=== PATIENT | female | born 1990 ===

== ENCOUNTER 2019-03-01 10:55 | Emergency (ER) | payer OTHER, MEDICAID, SELFPAY ==
[2019-03-01 11:15] VITALS: BP 105/68; PULSE 86; RESP 13; TEMP 36.1; O2SAT 99
--- NOTE | 2019-03-01 13:25 | ED.ANXIETY ---
HPI - Anxiety General Chief Complaint: Anxiety Stated Complaint: Anxiety Time Seen by Provider: 03/01/19 13:00 Source: patient Mode of arrival: ambulatory Limitations: no limitations History of Present Illness HPI narrative: This is a 28-year-old female comes to the emergency department complaint of anxiety. Patient has had longstanding diarrhea but has been worsening. She states that she had labs in September including checking her thyroid and they were all normal. She states that she has tried hydroxyzine in the past which was not very helpful. She was on citalopram for about a week but lost her prescription. She just moved to the area so she does not primary care. She has been seen by mental health in the past. She denies any suicidal ideation, intent or homicidal ideation. She states it just seems sort of like generalized anxiety nothing in particular seems to make her anxious or trigger she just sort of has attacks intermittently. She is staying in apartment through family housing. She did just recently started a job and is working 10-12 hours daily. She denies any other symptoms at this time. Related Data Previous Rx's Medication Instructions Recorded citalopram 20 mg PO DAILY #30 tab 03/01/19 clonazepam 0.25 mg PO BID PRN #5 tab 03/01/19 trazodone 50 mg PO BEDTIME #30 tab 03/01/19 Review of Systems Psychiatric Reports anxiety, Reports change in appetite, Denies depression, Denies homicidal ideation and Denies suicidal ideation [facility] Medical History (Updated 03/01/19 @ 13:46 by Shruthi Hurley DO) Anxiety (Chronic) Social History Smoking Status: Current every day smoker Social History (Updated 03/01/19 @ 13:42 by Shruthi Hurley DO) Smoking Status: Current every day smoker substance use type: does not use Exam Narrative Exam Narrative: GENERAL: Alert and oriented x three, well-nourished, well-appearing female in mild distress. HEENT: Head normocephalic, atraumatic, EOMI, pupils reactive, face symmetric, moist mucous membranes NECK: Supple, full range of motion, no thyromegaly, no nodules. CARDIOVASCULAR: Regular rate and rhythm without murmurs, rubs or gallops. RESPIRATORY: Breath sounds equal bilaterally, no wheezes rales or rhonchi. ABDOMEN: Soft, nontender. Normoactive bowel sounds all 4 quadrants. No guarding or rebound, rigidity, no mass : No CVA tenderness EXTREMITIES: Normal range of motion, no clubbing or edema. Neurovascularly intact NEUROLOGICAL: Cranial nerves II through XII grossly intact. Moving all extremities SKIN: Warm, dry, no petechiae, no rashes or lesions. PSYCH: Anxiety, denies depression. No suicidal homicidal ideation. Initial Vital Signs Initial Vital Signs: Vital Signs Temperature 97 F L 03/01/19 11:15 Pulse Rate 86 03/01/19 11:15 Respiratory Rate 13 03/01/19 11:15 Blood Pressure 105/68 03/01/19 11:15 Pulse Oximetry 99 03/01/19 11:15 Course Orders Ordered: ED Orders 03/01/19 13:04 EKG-12 Lead Stat 03/01/19 13:15 Urine Drug Screen, Rapid Stat Vital Signs - 8 hr 03/01/19 11:15 Temperature 97 F L Pulse Rate 86 Respiratory Rate 13 Blood Pressure 105/68 Pulse Oximetry 99 MDM - Anxiety Lab Data Lab Results 03/01/19 Range/Units 13:15 Urine Opiates Screen Negative (Negative) Ur Oxycodone Screen Negative (Negative) Urine Methadone Screen Negative (Negative) Ur Barbiturates Screen Negative (Negative) U Tricyclic Antidepress Negative (Negative) Ur Phencyclidine Scrn Negative (Negative) Ur Amphetamines Screen Negative (Negative) U Methamphetamines Scrn Negative (Negative) Ur MDMA Scrn (Ecstasy) Negative (Negative) U Benzodiazepines Scrn Negative (Negative) Urine Cocaine Screen Negative (Negative) U Marijuana (THC) Screen Negative (Negative) Point of Care Testing Test Results Negative Urine Dip Bedside Urine Glucose Negative Bedside Urine Bilirubin - Negative Bedside Urine Ketone - Negative Urine Specific [place] 1.030 Bedside Urine Occult Blood - Negative Bedside Urine pH 6.0 Bedside Urine Protein - Negative Bedside Urine Urobilinogen - Negative Bedside Urine Nitrite - Negative Bedside Urine Leukocytes - Negative Esterase ECG Data Attestation: I personally reviewed and interpreted this ECG as follows: Interpretation: Sinus rhythm rate of 70 P are 137 QRS 83 QTC at 378, no ST elevation or depression [facility] Narrative Medical decision making narrative: Patient was taking trazodone as well as citalopram together but for only a short period of time. She did not notice rapid increase in her symptoms while on these medications or worsening but she was not having any improvement. She is slowly worsening over time. Discussed with patient will restart on citalopram as well as the trazodone and give her a longer prescription to lower to set up follow-up. I will also give her a short-term script for benzodiazepine. Patient was given referral to Dr. Harris but also [facility] and discuss she can call her insurance number to see who is available for primary care as an option as well. Discharge Plan Departure Patient Disposition: Home Clinical Impression: Anxiety Discharge Date/Time: 03/01/19 14:15 Interventions: ED Discharge Assessment Last Done: 03/01/19 14:14 Instructions: Anxiety and Panic Attacks (Alternative Therapy) Activity Restrictions/Additional Instructions: Follow-up with primary care or Dr. Harris. You can call the [facility] number at [phone] and ask for the human resource statistician to help me find a primary care physician. Take trazodone as prescribed. Take citalopram as prescribed, you may increase from 20 to 40mg after one week. You may take 1/2 tablet of clonazepam every 8 hours as needed. These medications in combination and alone can make you sleepy so did not drive, perform has activities or make any major decisions while taking them. Return to the emergency department if you are having worsening symptoms, if you feel unsafe,if you have thoughts of harming herself, new chest pain, shortness of breath, passing out, persistent vomiting or other new or concerning symptoms. If you're feeling suicidal or having suicidal thoughts, contact the suicide hotline, this is also the resource number for [facility]. You can call to make an appointment or have follow-up with their CPIT team and for resources. . Prescriptions: New trazodone 50 mg tablet 50 mg PO BEDTIME Qty: 30 RF: 0 citalopram 20 mg tablet 20 mg PO DAILY Qty: 30 RF: 0 clonazepam 0.5 mg tablet 0.25 mg PO BID PRN (Reason: anxiety) Qty: 5 RF: 0 Referrals: Brian Harris MD [Physician] -
[2019-03-01 13:32] LABS: Urine Amphetamines Negative (Negative); Urine Barbiturates Negative (Negative); Urine Benzodiazepines Negative (Negative); Urine Cocaine Negative (Negative); Urine MDMA Negative (Negative); Urine Methadone Negative (Negative); Urine Methamphetamines Negative (Negative); Urine Morphine/Opi cutoff 2000 Negative (Negative); Urine Oxycodone Negative (Negative); Urine Phencyclidine Negative (Negative); Urine Tetrahydrocannabinol Negative (Negative); Urine Tricyclic Antidepressant Negative (Negative)
--- NOTE | 2019-03-01 13:46 | ED_ITS ---
HPI - Anxiety General Chief Complaint: Anxiety Stated Complaint: Anxiety Time Seen by Provider: 03/01/19 13:00 Source: patient Mode of arrival: ambulatory Limitations: no limitations History of Present Illness HPI narrative: This is a 28-year-old female comes to the emergency department complaint of anxiety. Patient has had longstanding diarrhea but has been worsening. She states that she had labs in September including checking her thyroid and they were all normal. She states that she has tried hydroxyzine in the past which was not very helpful. She was on citalopram for about a week but lost her prescription. She just moved to the area so she does not primary care. She has been seen by mental health in the past. She denies any suicidal ideation, intent or homicidal ideation. She states it just seems sort of like generalized anxiety nothing in particular seems to make her anxious or trigger she just sort of has attacks intermittently. She is staying in apartment through family housing. She did just recently started a job and is working 10- 12 hours daily. She denies any other symptoms at this time. Related Data Previous Rx's Medication Instructions Recorded citalopram 20 mg PO DAILY #30 tab 03/01/19 clonazepam 0.25 mg PO BID PRN #5 tab 03/01/19 trazodone 50 mg PO BEDTIME #30 tab 03/01/19 Review of Systems Psychiatric Reports anxiety, Reports change in appetite, Denies depression, Denies homicidal ideation and Denies suicidal ideation [facility] Medical History (Updated 03/01/19 @ 13:46 by Shruthi Hurley DO) Anxiety (Chronic) Social History Smoking Status: Current every day smoker Social History (Updated 03/01/19 @ 13:42 by Shruthi Hurley DO) Smoking Status: Current every day smoker substance use type: does not use Exam Narrative Exam Narrative: GENERAL: Alert and oriented x three, well-nourished, well-suni earing female in mild distress. HEENT: Head normocephalic, atraumatic, EOMI, pupils reactive, face symmetric, moist mucous membranes NECK: Supple, full range of motion, no thyromegaly, no nodules. CARDIOVASCULAR: Regular rate and rhythm without murmurs, rubs or gallops. RESPIRATORY: Breath sounds equal bilaterally, no wheezes rales or rhonchi. ABDOMEN: Soft, nontender. Normoactive bowel sounds all 4 quadrants. No guarding or rebound, rigidity, no mass : No CVA tenderness EXTREMITIES: Normal range of motion, no clubbing or edema. Neurovascularly intact NEUROLOGICAL: Cranial nerves II through XII grossly intact. Moving all extremities SKIN: Warm, dry, no petechiae, no rashes or lesions. PSYCH: Anxiety, denies depression. No suicidal homicidal ideation. Initial Vital Signs Initial Vital Signs: Vital Signs Temperature 97 F L 03/01/19 11:15 Pulse Rate 86 03/01/19 11:15 Respiratory Rate 13 03/01/19 11:15 Blood Pressure 105/68 03/01/19 11:15 Pulse Oximetry 99 03/01/19 11:15 Course Orders Ordered: ED Orders 03/01/19 13:04 EKG-12 Lead Stat 03/01/19 13:15 Urine Drug Screen, Rapid Stat Vital Signs - 8 hr 03/01/19 11:15 Temperature 97 F L Pulse Rate 86 Respiratory Rate 13 Blood Pressure 105/68 Pulse Oximetry 99 MDM - Anxiety Lab Data Lab Results 03/01/19 Range/Units 13:15 Urine Opiates Screen Negative (Negative) Ur Oxycodone Screen Negative (Negative) Urine Methadone Screen Negative (Negative) Ur Barbiturates Screen Negative (Negative) U Tricyclic Antidepress Negative (Negative) Ur Phencyclidine Scrn Negative (Negative) Ur Amphetamines Screen Negative (Negative) U Methamphetamines Scrn Negative (Negative) Ur MDMA Scrn (Ecstasy) Negative (Negative) U Benzodiazepines Scrn Negative (Negative) Urine Cocaine Screen Negative (Negative) U Marijuana (THC) Screen Negative (Negative) Point of Care Testing Test Results Negative Urine Dip Bedside Urine Glucose Negative Bedside Urine Bilirubin - Negative Bedside Urine Ketone - Negative Urine Specific [place] 1.030 Bedside Urine Occult Blood - Negative Bedside Urine pH 6.0 Bedside Urine Protein - Negative Bedside Urine Urobilinogen - Negative Bedside Urine Nitrite - Negative Bedside Urine Leukocytes - Negative Esterase ECG Data Attestation: I personally reviewed and interpreted this ECG as follows: Interpretation: Sinus rhythm rate of 70 P are 137 QRS 83 QTC at 378, no ST elevation or depression MDM Narrative Medical decision making narrative: Patient was taking trazodone as well as citalopram together but for only a short period of time. She did not notice rapid increase in her symptoms while on these medications or worsening but she was not having any improvement. She is slowly worsening over time. Discussed with patient will restart on citalopram as well as the trazodone and give her a longer prescription to lower to set up follow-up. I will also give her a short- term script for benzodiazepine. Patient was given referral to Dr. Harris but also [facility] and discuss she can call her insurance number to see who is available for primary care as an option as well. Discharge Plan Departure Patient Disposition: Home Clinical Impression: Anxiety Discharge Date/Time: 03/01/19 14:15 Interventions: ED Discharge Assessment Last Done: 03/01/19 14:14 Instructions: Anxiety and Panic Attacks (Alternative Therapy) Activity Restrictions/Additional Instructions: Follow-up with primary care or Dr. Harris. You can call the [facility] number at [phone] and ask for the enterprise resource analyst to help me find a primary care physician. Take trazodone as prescribed. Take citalopram as prescribed, you may increase from 20 to 40mg after one week. You may take 1/2 tablet of clonazepam every 8 hours as needed. These medications in combination and alone can make you sleepy so did not drive, perform has activities or make any major decisions while taking them. Return to the emergency department if you are having worsening symptoms, if you feel unsafe,if you have thoughts of harming herself, new chest pain, shortness of breath, passing out, persistent vomiting or other new or concerning symptoms. If you're feeling suicidal or having suicidal thoughts, contact the suicide hotline, this is also the resource number for [facility]. You can call to make an appointment or have follow-up with their CPIT team and for resources. . Prescriptions: New trazodone 50 mg tablet 50 mg PO BEDTIME Qty: 30 RF: 0 citalopram 20 mg tablet 20 mg PO DAILY Qty: 30 RF: 0 clonazepam 0.5 mg tablet 0.25 mg PO BID PRN (Reason: anxiety) Qty: 5 RF: 0 Referrals: Brian Harris MD [Physician] -
--- NOTE | 2019-03-02 17:01 | CM.SWNOTE ---
Follow up call ED FINANCIAL ADVISOR tried to call pt, but phone number on facesheet and in chart [phone] was not working so no mesage could be left.
== END 2019-03-01 14:15 | disposition home or self-care (01) ==
PROVIDERS: Emergency Provider Emergency Medicine
DX: F41.9 Anxiety disorder, unspecified (principal); R19.7 Diarrhea, unspecified
CPT/HCPCS: 80305; 81003; 81025; 93005; 99282; 99283